=== PATIENT | female | born 1970 | race Caucasian/White ===

== ENCOUNTER 2016-11-22 10:36 | Emergency (ER) | payer SELFPAY ==
--- NOTE | 2016-11-22 11:57 | Emergency Department Report ---
Chief Complaint: Extremity Injury, Lower Stated Complaint: RIGHT ANKLE PAIN - HPI History of Present Illness: 46F p/w c/o rigth ankle and foot pain s/p fall, using crutches to walk - ROS Review of Systems: x4 days of right foot/ankle pain - Exam Vital Signs: Vital Signs 11/22/16 11:22 Temperature 98.2 F Pulse Rate 87 Respiratory 16 Rate Blood Pressure 129/73 O2 Sat by Pulse 100 Oximetry Physical Exam: right ankle pain MSE screening note: Focused history and physical exam performed. Due to findings the following was ordered: mse: right ankle pain sprain vs fracture 1- xrays, r/o fracture ED Disposition for MSE Condition: Stable Referrals: PRIMARY CARE, [Primary Care Provider] - 3-5 Days
--- NOTE | 2016-11-22 13:45 | XRay Report ---
RIGHT ANKLE, 3 views: History: Right ankle pain. Findings: Mild soft tissue swelling is identified. No acute osseous abnormality or joint pathology is identified. The fifth metatarsal base is intact. Impression: Soft tissue swelling. No acute osseous injury.
--- NOTE | 2016-11-22 14:44 | XRay Report ---
RIGHT FOOT RADIOGRAPHS INDICATION: Status post fall. Evaluate for foot fracture. COMPARISON: None similar at this institution. FINDINGS: AP, lateral and oblique views of the right foot demonstrate intact bones and joints. Small plantar calcaneal spur. Diffuse soft tissue swelling noted, greatest dorsally and also suspected extending to the lower leg. No radiopaque foreign body. CONCLUSION: No acute right foot bony abnormality, though diffuse soft tissue swelling noted, as described. Please correlate. Thank you for the opportunity to participate in this patient's care.
--- NOTE | 2016-11-22 14:56 | Emergency Department Report ---
ED Lower Extremity HPI - General Chief Complaint: Extremity Injury, Lower Stated Complaint: RIGHT ANKLE PAIN Time Seen by Provider: 11/22/16 14:55 Source: patient Mode of arrival: Ambulatory Limitations: No Limitations - History of Present Illness Initial Comments: Patient reports that she tripped and fell down steps and twisted her ankle and her right foot 4 days ago. She said that she has been using her sister's crutches because she cannot bear weight bear on her right foot. She reports pain and swelling to right foot and ankle with swelling extended up into her right leg. Patient states she is worried about swelling going up and her right leg. She said pain is 5 out of 10 and throbbing pain and she uses ibuprofen which helped a little. Denies any fever or chills. Denies any redness to injured areas. Denies any chest pain or shortness of breath. Patient denies any use of control, denies recent long distance travel, denies personal history of blood clot in her lungs or lower extremities. Denies any recent prolonged bed rest. Patient said pain is worse with weightbearing and better at rest. MD Complaint: leg injury (swelling), ankle injury (pain and swelling), foot injury (pain and swelling) Injury: Leg: Right (swelling), Ankle: Right (pain and swelling due to injury), Foot: Right (pain and swelling due to injury) Type of Injury: other (she reports that she accidentally slipped down a couple steps and twisted her right ankle and foot.) Place: street/outdoors Severity: moderate Severity scale (0 -10): 5 Improves With: NSAID Worsens With: weight bearing, movement, palpation Context: fall Associated Symptoms: swelling, unable to bear weight. denies: snap/pop sensation, numbness, tingling Treatments Prior to Arrival: NSAIDS, other (crutches) - Related Data Previous Rx's Medication Instructions Recorded Last Taken Type Acetaminophen/Codeine [Tylenol 1 tab PO Q6H PRN #15 tab 11/22/16 Unknown Rx /Codeine # 3 tab] Ibuprofen [Motrin] 600 mg PO Q8H PRN #15 tablet 11/22/16 Unknown Rx Allergies Allergy/AdvReac Type Severity Reaction Status Date / Time No Known Allergies Allergy Unverified 11/22/16 11:31 ED Review of Systems ROS: Stated complaint: RIGHT ANKLE PAIN Other details as noted in HPI Comment: All other systems reviewed and negative Constitutional: no symptoms reported Respiratory: no symptoms reported Cardiovascular: denies: chest pain, palpitations, edema, syncope Gastrointestinal: denies: abdominal pain, nausea, vomiting Musculoskeletal: joint swelling, arthralgia, other (swelling to right lower extremity to include leg, ankle and foot). denies: back pain, myalgia Skin: denies: rash Neurological: abnormal gait (decreased motor movement due to swelling and pain to ankle and foot). denies: headache, weakness, numbness, paresthesias, confusion ED Past Medical Hx - Past Medical History Previous Medical History?: No - Surgical History Past Surgical History?: Yes Additional Surgical History: BACK - Family History Family history: hypertension - Social History Smoking Status: Never Smoker Substance Use Type: None - Medications Home Medications: Home Medications Medication Instructions Recorded Confirmed Last Taken Type Acetaminophen/Codeine [Tylenol 1 tab PO Q6H PRN #15 tab 11/22/16 Unknown Rx /Codeine # 3 tab] Ibuprofen [Motrin] 600 mg PO Q8H PRN #15 tablet 11/22/16 Unknown Rx ED Physical Exam - General Limitations: No Limitations General appearance: alert, in no apparent distress - Head Head exam: Present: atraumatic, normocephalic, normal inspection - Eye Eye exam: Present: normal appearance, PERRL, EOMI Pupils: Present: normal accommodation - ENT ENT exam: Present: normal exam, normal orophraynx, mucous membranes moist - Neck Neck exam: Present: normal inspection, full ROM. Absent: tenderness, lymphadenopathy - Respiratory Respiratory exam: Present: normal lung sounds bilaterally. Absent: respiratory distress, wheezes, rales, rhonchi, stridor, chest wall tenderness, accessory muscle use - Cardiovascular Cardiovascular Exam: Present: regular rate, normal rhythm, normal heart sounds. Absent: systolic murmur, diastolic murmur - GI/Abdominal GI/Abdominal exam: Present: soft, normal bowel sounds. Absent: distended, tenderness, guarding, rebound, rigid, organomegaly, mass, bruit - Extremities Exam Extremities exam: Present: tenderness (end of the palpated to the right ankle and foot.), normal capillary refill, pedal edema (rt foot), joint swelling ( right ankle), calf tenderness (right calf tender to palpate with swelling. No ecchymosis noted the site.). Absent: normal inspection, full ROM (patient with limited range of motion to right ankle and foot due to injury and pain and swelling. She is able to partially dorsiflex and plantar flex her right foot but reports it's very painful.) - Expanded Lower Extremity Exam Right Hip exam: Present: normal inspection, full ROM, pelvic stability. Absent: tenderness, swelling, abrasion, laceration, ecchymosis, deformity, crepidus, dislocation, erythema, external rotation, internal rotation, shortening Upper Leg exam: Present: normal inspection, full ROM. Absent: tenderness, swelling, abrasion, laceration, ecchymosis, deformity, crepidus, dislocation, erythema Knee exam: Present: normal inspection, full ROM, full knee extension. Absent: tenderness, swelling, abrasion, laceration, ecchymosis, deformity, crepidus, dislocation, erythema, effusion, pain w/ pronation/supination, posterior draw sign, pain/laxity with valgus, pain/laxity with varus Lower Leg exam: Present: full ROM, tenderness (right calf), swelling. Absent: normal inspection, abrasion, laceration, ecchymosis, deformity, crepidus, dislocation, erythema, palpable cord, Ivelisse's sign Ankle exam: Present: tenderness, swelling. Absent: normal inspection, full ROM (did range of motion to right ankle.), abrasion, laceration, ecchymosis, deformity, crepidus, dislocation, erythema, anterior draw sign Foot/Toe exam: Present: full ROM (Limited range of motion to right foot), tenderness, swelling. Absent: normal inspection, abrasion, laceration, ecchymosis, deformity, crepidus, dislocation, erythema, amputation, puncture wound, foreign body, calcaneal tenderness, tenderness at base of 5th metatarsal , nail avulsion, subungual hematoma Neuro vascular tendon exam: Present: no vascular compromise, motor deficit ( decreased motor movement to the right foot and ankle. Patient with 3/5 strength to right foot and ankle), significant pain with passive ROM of distal joint. Absent: pulse deficit, abnormal cap refill, sensory deficit, tendon deficit, extremity cold to touch, pallor, abnormal 2-point discrimination, decreased fine/light touch, foot drop, peroneal nerve deficit Gait: Positive: unable to bear weight - Back Exam Back exam: Present: normal inspection, full ROM. Absent: tenderness, CVA tenderness (R), CVA tenderness (L), muscle spasm, paraspinal tenderness, vertebral tenderness, rash noted - Neurological Exam Neurological exam: Present: alert, oriented X3, abnormal gait (patient with a normal gait to right lower extremity and foot and ankle due to sprain to foot and ankle), motor sensory deficit (abnormal motor function to right foot and ankle due to injury and ankle and foot sprain), reflexes normal - Psychiatric Psychiatric exam: Present: normal affect, normal mood - Skin Skin exam: Present: warm, dry, intact, normal color. Absent: rash ED Course Vital Signs 11/22/16 11:22 Temperature 98.2 F Pulse Rate 87 Respiratory 16 Rate Blood Pressure 129/73 O2 Sat by Pulse 100 Oximetry - Reevaluation(s) Reevaluation #1: 11/22/16 16:25 given Toradol 30 mg IM in the emergency room for foot and ankle pain. - Orthopedic Splinting/Casting Injury #1 Side: right Lower Extremity Injury Location: ankle, foot Lower Extremity Immobilizer: stirrup splint Other Orthopedic Equipment: crutches (patient has her own crutches.) Additional Comments: Patient with good neurovascular check status post splint placement ED Lower Extremity MDM - Radiology Data Radiology results: report reviewed Of right foot and ankle reveal no fracture or dislocation but patient with significant swelling to right foot and ankle. Doppler ultrasound of right lower extremity revealed no SVT or DVT. - Medical Decision Making ED course: Presents to emergency room with swelling and pain to right lower extremity to include leg ankle and foot. She said she fell down a couple steps and twisted her ankle and foot. She said this happened 4 days ago and she's been taking Motrin and using her sister's crutches but the swelling is increasing. Patient was given Toradol 30 mg IM in emergency room with relief of pain. X-ray report reveals patient has no fracture or dislocation to right foot and ankle but she has significant soft tissue swelling. I discussed the patient that radiologist read x-ray as no fracture or dislocation seen but because she has significant soft tissue swelling she will need to follow-up with orthopedic doctor in 2-3 days probably for repeat x-ray because sometimes small fractures can be obscured with significant soft tissue swelling. Ankle stirrup placed and patient has her own crutches. Rice protocol explained to patient. Patient had venous Doppler ultrasound of her right lower extremity due to calf tenderness and swelling to her leg. There were no findings for SVT or DVT. Patient with arthralgia multiple sites, right lower extremity swelling , right ankle and foot sprain. Patient voiced understanding of diagnoses and treatment plan and discharged home with prescription for Motrin and Tylenol 3 and to follow-up with orthopedic doctor in 2-3 days. Critical care attestation.: If time is entered above; I have spent that time in minutes in the direct care of this critically ill patient, excluding procedure time. ED Disposition Clinical Impression: Pain and swelling of right lower extremity, Arthralgia of multiple sites Sprain of ankle, right Qualifiers: Encounter type: initial encounter Involved ligament of ankle: unspecified ligament Qualified Code(s): S93.401A - Sprain of unspecified ligament of right ankle, initial encounter Sprain of right foot Qualifiers: Encounter type: initial encounter Qualified Code(s): S93.601A - Unspecified sprain of right foot, initial encounter Accidental fall Qualifiers: Encounter type: initial encounter Qualified Code(s): W19.XXXA - Unspecified fall, initial encounter Disposition: - TO HOME OR SELFCARE Is pt being admited?: No Does the pt Need Aspirin: No Condition: Stable Instructions: Arthralgia (ED), Ankle Sprain (ED), Foot Sprain (ED), Musculoskeletal Pain (ED), Ankle Stirrup Splint (ED), Leg Edema (ED), Crutch Instructions (ED), RICE Therapy (ED) Additional Instructions: Please follow up with orthopedic doctor in 2-3 days No weightbearing to right lower extremity. Follow discharge instructions on rice therapy, splint care and use of crutches. can take Motrin as prescribed for inflammation and pain. Please do not drive or operate heavy machinery while taking Tylenol No. 3 as this medication causes drowsiness. Prescriptions: Acetaminophen/Codeine [Tylenol /Codeine # 3 tab] 1 tab PO Q6H PRN #15 tab PRN Reason: Pain, Moderate (4-6) Ibuprofen [Motrin] 600 mg PO Q8H PRN #15 tablet PRN Reason: Pain Referrals: ANTONIO VIDES MD [Staff Physician] - 2-3 Days Forms: Work/School Release Form(ED)
[2016-11-22] MEDS ORDERED: TORADOL IM ONE (15:03)
[2016-11-22 17:11] VITALS: BP 125/81
--- NOTE | 2016-11-24 07:47 | Vascular Lab Report ---
Right Lower Extremity Venous Duplex Study: Reason for Exam: Pain of the right lower extremity. Comments on the Right: All veins visualized are freely compressible without evidence of internal echogenicity. Flow is spontaneous and phasic throughout. No evidence of acute or chronic thrombus is seen in any of the vessels visualized. Comments on the Left: A limited duplex study was done of the proximal veins of the left lower extremity. All veins visualized are freely compressible without evidence of internal echogenicity. Flow is spontaneous and phasic throughout. No evidence of acute or chronic thrombus is seen in any of the vessels visualized. Impression: No evidence of acute or chronic deep venous thrombosis in the right lower extremity.
== END 2016-11-22 17:09 | disposition home or self-care (01) ==
LOC: ED 10:36
DX: S93.601A Unspecified sprain of right foot, initial encounter (principal); S93.401A Sprain of unspecified ligament of right ankle, initial encounter; M79.89 Other specified soft tissue disorders; M25.50 Pain in unspecified joint
CPT/HCPCS: 29515; 73610; 73630; 93971; 96372; 99283; J1885